=== PATIENT | male | born 1960 | race Caucasian/White ===

== ENCOUNTER 2017-06-24 12:01 | Emergency (ER) | payer OTHER ==
[2017-06-24 12:36] LABS: #Eosinphils 0.1 thou/uL (0.0-0.7); #Lymphocytes 1.7 thou/uL (1.20-3.40); #Monocytes 0.8 thou/uL (0.11-0.59); #Neutrophils 3.9 thou/uL (1.40-6.50); %Basophils 0.7 % (0.0-1.0); %Eosinophils 1.3 % (0.0-10.0); %Lymphocytes 26.6 % (21.0-51.0); %Monocytes 11.9 % (0.0-10.0); Hematocrit 42.5 % (42.0-52.0); Mean Platelet Volume 7.5 fL (7.4-10.4); Red Blood Cell (RBC) Count 4.75 mill/uL (4.70-6.10); White Blood Cell (WBC) Count 6.5 thou/uL (4.8-10.8)
[2017-06-24 12:59] LABS: Acetaminophen Less than 6.0 mcg/mL (10.0-30.0); Salicylate Less than 8.0 mg/dL (15.0-30.0)
[2017-06-24 13:01] LABS: ALT (SGPT) 23 U/L (8-55); AST (SGOT) 33 U/L (5-34); Alkaline Phosphatase 74 U/L (40-150); Anion Gap 14 mmol/L (10-20); BUN (Urea Nitrogen) 17 mg/dL (8.4-25.7); Bilirubin, Total 0.8 mg/dL (0.2-1.2); CK (CPK) 858 U/L (30-200); Calc. Creatinine Clearance 0 mL/min (70-130); Calcium 9.1 mg/dL (7.8-10.44); Carbon Dioxide 24 mmol/L (22-29); Chloride 105 mmol/L (98-107); Estimated GFR-MDRD 85; Globulin 3.3 g/dL (2.4-3.5); Protein, Total 7.4 g/dL (6.0-8.3)
[2017-06-24 13:11] LABS: Troponin I Less than 0.010 ng/mL (< 0.028)
--- NOTE | 2017-06-24 13:26 | RAD ---
RADIOGRAPH CHEST 1 VIEW: HISTORY: A 57-year-old male with psychosis. Altered mental status. FINDINGS: There are no air space densities, pulmonary edema, pneumothorax, or cardiomegaly. The lateral costo phrenic angles are sharp. IMPRESSION: No acute cardiopulmonary findings. kev [] POS: [facility]
--- NOTE | 2017-06-24 13:35 | CT ---
CT BRAIN NONCONTRAST: HISTORY: A 57-year-old male with altered mental status. Psychosis. FINDINGS: There is no midline shift or any other mass effect. There is no evidence of acute intracranial hemo rrhage, large cortical infarct, obstructive hydrocephalus, or extraaxial fluid collection. The calv arium is intact. IMPRESSION: No acute intracranial findings. kev [] POS: [facility]
[2017-06-24 14:32] LABS: Bilirubin Negative (Negative); Blood, Urine Negative (Negative); Glucose, Urine (Dipstick) Negative (Negative); Ketone, Urine 15 mg/dL (Negative); Nitrite Negative (Negative); Protein, Urine (Dipstick) Negative (Neg-Trace); Urobilinogen 0.2 mg/dL (0.2-1.0)
[2017-06-24 14:41] LABS: Amphetamine Not Detected (NotDetected); Methadone Not Detected (NotDetected); Methamphetamine Not Detected (NotDetected)
[2017-06-24] MEDS ORDERED: Lorazepam 2 MG/ML VIAL ONE (14:47)
== END 2017-06-25 02:29 ==
LOC: ER/OP 12:01 → ERS 12:01
DX: F23 Brief psychotic disorder (principal); I10 Essential (primary) hypertension; F41.9 Anxiety disorder, unspecified; F32.9 Major depressive disorder, single episode, unspecified; Z87.891 Personal history of nicotine dependence; Z79.899 Other long term (current) drug therapy
CPT/HCPCS: 36415; 70450; 71010; 80053; 80306; 80307; 81003; 82550; 82553; 84443; 84484; 85025; 93005; 96361; 96374; J2060

== ENCOUNTER 2017-07-10 09:54 | Observation (INO) | payer OTHER ==
[2017-07-10 10:37] LABS: #Eosinphils 0.2 thou/uL (0.0-0.7); #Lymphocytes 1.8 thou/uL (1.20-3.40); #Monocytes 0.4 thou/uL (0.11-0.59); #Neutrophils 3.5 thou/uL (1.40-6.50); %Basophils 0.3 % (0.0-1.0); %Lymphocytes 30.2 % (21.0-51.0); %Monocytes 6.3 % (0.0-10.0); Hematocrit 45.8 % (42.0-52.0); Mean Platelet Volume 7.6 fL (7.4-10.4); White Blood Cell (WBC) Count 5.9 thou/uL (4.8-10.8)
--- NOTE | 2017-07-10 10:44 | RAD ---
SINGLE VIEW OF THE CHEST: COMPARISON: 06/24/2017 HISTORY: Chest pain that is intermittent. FINDINGS: Single view of the chest shows a normal sized cardiomediastinal silhouette. There is no evidence of consolidation, mass, or pleural effusion. The bones are unremarkable. IMPRESSION: No evidence of acute cardiopulmonary disease. POS: [facility]
[2017-07-10 10:59] LABS: ALT (SGPT) 15 U/L (8-55); AST (SGOT) 15 U/L (5-34); Acetaminophen Less than 6.0 mcg/mL (10.0-30.0); Alkaline Phosphatase 83 U/L (40-150); Anion Gap 12 mmol/L (10-20); BUN (Urea Nitrogen) 10 mg/dL (8.4-25.7); Bilirubin, Total 0.6 mg/dL (0.2-1.2); CK (CPK) 111 U/L (30-200); Calc. Creatinine Clearance 0 mL/min (70-130); Calcium 9.4 mg/dL (7.8-10.44); Carbon Dioxide 23 mmol/L (22-29); Chloride 105 mmol/L (98-107); Estimated GFR-MDRD Greater than 90; Globulin 3.6 g/dL (2.4-3.5); Lipase 29 U/L (8-78); Protein, Total 7.7 g/dL (6.0-8.3); Salicylate Less than 8.0 mg/dL (15.0-30.0)
[2017-07-10 11:00] LABS: Troponin I Less than 0.010 ng/mL (< 0.028)
[2017-07-10] MEDS ORDERED: Lorazepam 2 MG/ML VIAL ONE (11:04)
[2017-07-10 11:38] LABS: Bilirubin Negative (Negative); Blood, Urine Negative (Negative); Glucose, Urine (Dipstick) Negative (Negative); Ketone, Urine Negative (Negative); Nitrite Negative (Negative); Protein, Urine (Dipstick) Negative (Neg-Trace); Urobilinogen 0.2 mg/dL (0.2-1.0)
[2017-07-10] MEDS ORDERED: busPIRone HCl 10 MG TAB PO SCH (11:45)
[2017-07-10 11:48] LABS: Amphetamine Not Detected (NotDetected); Methadone Not Detected (NotDetected); Methamphetamine Not Detected (NotDetected)
--- NOTE | 2017-07-10 12:11 | RAD ---
THREE VIEWS RIGHT SHOULDER: Indication: History of shoulder pain. FINDINGS: The exam is compared to 01-15-17. There is a small bone at the proximal humerus. There is mild right AC joint osteoarthrosis. Visualiz ed right lung is clear. IMPRESSION: No acute osseous abnormality. POS: [facility]
[2017-07-10 13:57] LABS: Troponin I Less than 0.010 ng/mL (< 0.028)
[2017-07-10 16:42] LABS: Troponin I 0.014 ng/mL (< 0.028)
[2017-07-10] MEDS ORDERED: Acetaminophen 325 MG TAB PO PRN (17:30)
[2017-07-10] MEDS ORDERED: FLU VACC QS2017-18 36 mo. & older 0.5 ML SYRINGE IM ONE (21:00)
[2017-07-10] MEDS: Albuterol Sulfate 2.5 mg/3 ml Neb NEB PRN (21:31)
[2017-07-10] MEDS: busPIRone HCl 10 MG TAB PO SCH (21:32)
[2017-07-10] MEDS: hydrOXYzine 25 MG TAB PO SCH (21:33)
[2017-07-10] MEDS: traMADol HCl 50 MG TAB PO SCH (21:33)
[2017-07-11] MEDS: busPIRone HCl 10 MG TAB PO SCH ×3 (09:23→20:48)
[2017-07-11] MEDS: traMADol HCl 50 MG TAB PO SCH ×2 (09:24→20:49)
[2017-07-11] MEDS: hydrOXYzine 25 MG TAB PO SCH ×2 (09:24→20:47)
[2017-07-11] MEDS: Albuterol Sulfate 2.5 mg/3 ml Neb NEB PRN ×2 (09:41→21:42)
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
[2017-07-12 06:34] VITALS: BMI 21.8
[2017-07-12] MEDS: traMADol HCl 50 MG TAB PO SCH ×2 (09:05→20:09)
[2017-07-12] MEDS: hydrOXYzine 25 MG TAB PO SCH ×2 (09:06→20:09)
[2017-07-12] MEDS: busPIRone HCl 10 MG TAB PO SCH ×3 (09:06→20:09)
[2017-07-12] MEDS: Albuterol Sulfate 2.5 mg/3 ml Neb NEB PRN (12:23)
--- NOTE | 2017-07-12 12:44 | NM ---
NUCLEAR MEDICINE CARDIAC PERFUSION EXAMINATION WITH EJECTION FRACTION: HISTORY: 57-year-old male with chest pain. TECHNIQUE: A two day nuclear medicine cardiac perfusion examination was performed. Rest images were obtained us ing 27 mCi of technetium-99m sestamibi. Stress images were obtained using 28.3 mCi of technetium-99m sestamibi and Lexiscan. FINDINGS: Tomographic images show no fixed or reversible perfusion defects. Gated images show normal wall thompson on with an ejection fraction of 45%. EDV: 123 ml LHR: 0.4 TID: 0.8 IMPRESSION: 1. No evidence of ischemia. 2. Decreased ejection fraction. POS: [facility]
[2017-07-12] MEDS ORDERED: Regadenoson 0.4 MG/5 ML SYRINGE ONE (16:41)
[2017-07-13] MEDS: Albuterol Sulfate 2.5 mg/3 ml Neb NEB PRN (05:53)
[2017-07-13] MEDS: traMADol HCl 50 MG TAB PO SCH ×2 (11:05→20:16)
[2017-07-13] MEDS: busPIRone HCl 10 MG TAB PO SCH ×3 (11:05→20:17)
[2017-07-13] MEDS: hydrOXYzine 25 MG TAB PO SCH ×2 (11:08→20:15)
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
[2017-07-14 08:52] VITALS: BP 124/86; TEMP 98.3
[2017-07-14] MEDS: busPIRone HCl 10 MG TAB PO SCH (09:56)
[2017-07-14] MEDS: hydrOXYzine 25 MG TAB PO SCH (09:56)
[2017-07-14] MEDS: traMADol HCl 50 MG TAB PO SCH (09:58)
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
== END 2017-07-14 14:50 ==
LOC: ERS 09:54 → 2NO 11:49
PROVIDERS: ADMIT Internal Medicine; ATTEND Internal Medicine
DX: R07.9 Chest pain, unspecified (principal); F41.9 Anxiety disorder, unspecified; R45.851 Suicidal ideations; I10 Essential (primary) hypertension; E78.5 Hyperlipidemia, unspecified; M54.9 Dorsalgia, unspecified; G89.29 Other chronic pain; F10.10 Alcohol abuse, uncomplicated; F31.9 Bipolar disorder, unspecified; J44.9 Chronic obstructive pulmonary disease, unspecified; F20.9 Schizophrenia, unspecified; F17.210 Nicotine dependence, cigarettes, uncomplicated; M19.011 Primary osteoarthritis, right shoulder; Z79.899 Other long term (current) drug therapy; Z91.5 Personal history of self-harm
CPT/HCPCS: 36415; 71010; 78452; 80053; 80306; 80307; 81003; 82553; 83690; 84443; 84484; 85025; 90471; 90682; 93005; 93017; 93306; 94640; 96374; A9500; G0008; G0378; J2060; J2785; J7611; Q2036

== ENCOUNTER 2018-07-25 12:59 | Emergency (ER) | payer OTHER ==
[2018-07-25 13:49] LABS: #Basophils 0.1 thou/uL (0.0-0.2); #Lymphocytes 1.7 thou/uL (1.20-3.40); #Monocytes 0.6 thou/uL (0.11-0.59); %Basophils 0.9 % (0.0-1.0); %Eosinophils 0.7 % (0.0-10.0); %Lymphocytes 26.3 % (21.0-51.0); %Monocytes 9.6 % (0.0-10.0); %Neutrophils 62.5 % (42.0-75.0); Hemoglobin 16.7 g/dL (14.0-18.0); Mean Corpuscular HGB CONC 33.8 g/dL (32.0-36.0); Mean Corpuscular Hemoglobin 30.8 pg (27.0-31.0); Mean Corpuscular Volume 90.9 fL (78.0-98.0); Platelet Count 222 thou/uL (130-400); RBC Distribution Width 12.6 % (11.5-14.5); Red Blood Cell (RBC) Count 5.42 mill/uL (4.70-6.10); White Blood Cell (WBC) Count 6.4 thou/uL (4.8-10.8)
[2018-07-25 13:59] LABS: ALT (SGPT) 15 U/L (8-55); AST (SGOT) 16 U/L (5-34); Acetaminophen Less than 6.0 mcg/mL (10.0-30.0); Albumin 4.3 g/dL (3.5-5.0); Alcohol 77 mg/dL (Less than 10); Alkaline Phosphatase 70 U/L (40-150); Anion Gap 13 mmol/L (10-20); BUN (Urea Nitrogen) 9 mg/dL (8.4-25.7); Bilirubin, Total 0.6 mg/dL (0.2-1.2); Calc. Creatinine Clearance 0 mL/min (70-130); Calcium 9.3 mg/dL (7.8-10.44); Carbon Dioxide 25 mmol/L (22-29); Chloride 105 mmol/L (98-107); Estimated GFR-MDRD Greater than 90; Globulin 3.4 g/dL (2.4-3.5); Glucose 106 mg/dL (70-105); Potassium 3.7 mmol/L (3.5-5.1); Protein, Total 7.7 g/dL (6.0-8.3); Salicylate Less than 8.0 mg/dL (15.0-30.0); Sodium 139 mmol/L (136-145)
[2018-07-25 14:04] LABS: Troponin I Less than 0.010 ng/mL (< 0.028)
[2018-07-25 14:07] LABS: CKMB 7.6 ng/mL (0-6.6)
[2018-07-25 14:45] LABS: Bilirubin Negative (Negative); Blood, Urine Negative (Negative); Clarity CLEAR (Clear); Glucose, Urine (Dipstick) Negative (Negative); Leukocyte Negative (Negative); Nitrite Negative (Negative); Protein, Urine (Dipstick) Negative (Neg-Trace); Specific Gravity, Urine 1.001 (1.002-1.036); Urobilinogen 0.2 mg/dL (0.2-1.0)
[2018-07-25 15:18] LABS: Amphetamine Not Detected (NotDetected); Barbiturates Screen Not Detected (NotDetected); Benzodiazepine Screen Not Detected (NotDetected); Cocaine Metabolite Screen Not Detected (NotDetected); Medtox Control Line Valid? VALID (VALID); Medtox Reader # READER 1; Methadone Not Detected (NotDetected); Methamphetamine Not Detected (NotDetected); Opiate Screen Not Detected (NotDetected); Oxycodone Screen Not Detected (NotDetected); Phencyclidine (PCP) Not Detected (NotDetected); THC/Cannabinoid Screen Not Detected (NotDetected); Tricyclic Screen Not Detected (NotDetected)
== END 2018-07-26 00:23 ==
LOC: ERS 12:59
DX: T43.592A Poisoning by other antipsychotics and neuroleptics, intentional self-harm, initial encounter (principal); J44.9 Chronic obstructive pulmonary disease, unspecified; I10 Essential (primary) hypertension; F31.9 Bipolar disorder, unspecified; F20.9 Schizophrenia, unspecified; F41.9 Anxiety disorder, unspecified; F17.200 Nicotine dependence, unspecified, uncomplicated; Z79.899 Other long term (current) drug therapy
CPT/HCPCS: 36415; 80053; 80306; 80307; 81003; 82553; 83605; 84443; 84484; 85025; 93005; 96360; 96361